=== PATIENT | female | born 1960 | race Asian ===

== ENCOUNTER → 2016-08-24 | Outpatient (CLI) | payer MEDICAID ==
[2015-01-06 10:21] VITALS: BP 158/92
[~2016-08-24] MED LIST: DRAMAMINE50 M2 PO; IRON325 M1 PO; ULTRAM 50MG TAB50 MG PO; ZESTRIL2.5 MG PO
== END ==
LOC: LAB 08-23 17:11
DX: I10 Essential (primary) hypertension (principal); M54.17 Radiculopathy, lumbosacral region; D50.0 Iron deficiency anemia secondary to blood loss (chronic); H81.20 Vestibular neuronitis, unspecified ear

== ENCOUNTER → 2016-12-06 | Outpatient (CLI) | payer MEDICAID ==
[2015-01-06 10:21] VITALS: BP 158/92
== END ==
LOC: LAB 07:51
DX: E03.9 Hypothyroidism, unspecified (principal)

== ENCOUNTER → 2017-02-21 | Outpatient (CLI) | payer MEDICAID ==
[2015-01-06 10:21] VITALS: BP 158/92
[2017-02-21 18:06] LABS: BUN/CREATININE RATIO 26.1 (6.0-26.0); CALCIUM 9.8 mg/dL (8.4-10.2); POTASSIUM 4.1 mmol/L (3.6-5.0)
== END ==
LOC: LAB 16:46
PROVIDERS: Family Medicine
DX: E03.9 Hypothyroidism, unspecified (principal); I10 Essential (primary) hypertension; E87.6 Hypokalemia

== ENCOUNTER → 2017-02-27 | Outpatient (CLI) | payer MEDICAID ==
[2015-01-06 10:21] VITALS: BP 158/92
== END ==
LOC: RAD 07:01
DX: M47.816 Spondylosis without myelopathy or radiculopathy, lumbar region (principal); M54.41 Lumbago with sciatica, right side

== ENCOUNTER → 2017-03-14 | Outpatient (CLI) | payer MEDICAID ==
[2015-01-06 10:21] VITALS: BP 158/92
== END ==
LOC: LAB 08:26
DX: R73.9 Hyperglycemia, unspecified (principal)

== ENCOUNTER 2017-05-03 08:30 | Outpatient (RCR) | payer MEDICAID ==
[2015-01-06 10:21] VITALS: BP 158/92
== END 2017-06-17 | disposition home or self-care (01) ==
LOC: PT
DX: M54.41 Lumbago with sciatica, right side (principal)

== ENCOUNTER → 2017-09-11 | Outpatient (CLI) | payer MEDICAID ==
[2015-01-06 10:21] VITALS: BP 158/92
[2017-09-11 15:16] LABS: HEMOGLOBIN 14.3 g/dL (12.5-16.0); MEAN PLATELET VOLUME 10.1 fl (7.4-10.4); RED BLOOD COUNT 4.83 M/mm3 (4.10-5.30); RED CELL DISTRIBUTION WIDTH 12.6 % (11.5-14.5); WHITE BLOOD COUNT 8.2 K/mm3 (4.8-10.8)
[2017-09-11 15:49] LABS: ALBUMIN 4.5 g/dL (3.5-5.0); CALCIUM 9.6 mg/dL (8.4-10.2); POTASSIUM 3.6 mmol/L (3.6-5.0); TOTAL BILIRUBIN 0.8 mg/dL (0.2-1.3); TOTAL PROTEIN 8.9 g/dL (6.3-8.2)
== END ==
LOC: LAB 14:57
PROVIDERS: Family Medicine
DX: G62.9 Polyneuropathy, unspecified (principal); L29.9 Pruritus, unspecified; M19.90 Unspecified osteoarthritis, unspecified site; E03.9 Hypothyroidism, unspecified; M51.9 Unspecified thoracic, thoracolumbar and lumbosacral intervertebral disc disorder; R73.9 Hyperglycemia, unspecified

== ENCOUNTER → 2018-03-24 | Day surgery (SDC) | payer MEDICAID ==
[2015-01-06 10:21] VITALS: BP 158/92
== END ==
LOC: MSO 07:01
DX: K64.5 Perianal venous thrombosis (principal); I10 Essential (primary) hypertension; E07.9 Disorder of thyroid, unspecified; E66.9 Obesity, unspecified; Z79.899 Other long term (current) drug therapy; R42 Dizziness and giddiness
CPT/HCPCS: 00902; J0690; J1100; J1885; J2405; J2704; J3010; J7120

== ENCOUNTER → 2018-07-25 | Outpatient (CLI) | payer MEDICAID ==
[2015-01-06 10:21] VITALS: BP 158/92
[2018-07-25 10:38] LABS: EOS # 0.1 (0.04-0.40); EOS % 2.3 % (1.0-5.0); HEMATOCRIT 41.9 % (37.0-47.0); HEMOGLOBIN 14.1 g/dL (12.5-16.0); LYMPH# 1.9 (1.50-4.00); MEAN CELL VOLUME 86 fl (78-100); MEAN CORPUSCULAR HEMOGLOBIN 29 pg (27-31); MEAN CORPUSCULAR HGB CONC 34 g/dL (33-37); MEAN PLATELET VOLUME 10.9 fl (7.4-10.4); MONO # 0.4 (0.20-0.80); NEU # 3.6 (1.40-6.50); PLATELET COUNT 228 K/mm3 (130-400); RED BLOOD COUNT 4.86 M/mm3 (4.10-5.30); RED CELL DISTRIBUTION WIDTH 12.2 % (11.5-14.5)
[2018-07-25 10:51] LABS: URINE APPEARANCE CLOUDY; URINE COLOR YELLOW; URINE PROTEIN(semi-quant) TRACE mg/dL (NEGATIVE)
[2018-07-25 10:52] LABS: ALBUMIN 4.5 g/dL (3.5-5.0); CALCIUM 9.3 mg/dL (8.4-10.2); POTASSIUM 3.5 mmol/L (3.6-5.0); TOTAL BILIRUBIN 0.7 mg/dL (0.2-1.3); TOTAL PROTEIN 7.9 g/dL (6.3-8.2); URINE BILIRUBIN NEGATIVE (NEGATIVE); URINE BLOOD NEGATIVE (NEGATIVE); URINE KETONE NEGATIVE (NEGATIVE); URINE LEUKOCYTE ESTERASE 1+ (NEGATIVE); URINE MUCUS PRESENT (NOT PRESENT); URINE NITRATE NEGATIVE (NEGATIVE); URINE UROBILINOGEN NORMAL (NORMAL); URINE WBC 31-50 /hpf (0-3)
== END ==
LOC: LAB 10:15
PROVIDERS: Family Medicine
DX: Z00.00 Encounter for general adult medical examination without abnormal findings (principal); Z12.12 Encounter for screening for malignant neoplasm of rectum; Z12.31 Encounter for screening mammogram for malignant neoplasm of breast; E03.9 Hypothyroidism, unspecified; I10 Essential (primary) hypertension; G47.9 Sleep disorder, unspecified; L20.9 Atopic dermatitis, unspecified; H81.10 Benign paroxysmal vertigo, unspecified ear; M19.90 Unspecified osteoarthritis, unspecified site; R10.32 Left lower quadrant pain

== ENCOUNTER → 2018-08-04 | Day surgery (SDC) | payer MEDICAID ==
[2015-01-06 10:21] VITALS: BP 158/92
== END ==
LOC: MSO 09:30
DX: Z12.11 Encounter for screening for malignant neoplasm of colon (principal); I10 Essential (primary) hypertension; K57.30 Diverticulosis of large intestine without perforation or abscess without bleeding; Z90.710 Acquired absence of both cervix and uterus; Z90.722 Acquired absence of ovaries, bilateral; Z90.79 Acquired absence of other genital organ(s)
CPT/HCPCS: 00812; J2704; J3010; J7120

== ENCOUNTER → 2018-08-08 | Outpatient (CLI) | payer MEDICAID ==
[2015-01-06 10:21] VITALS: BP 158/92
[2018-08-08 09:04] LABS: URINE APPEARANCE CLEAR; URINE BILIRUBIN NEGATIVE (NEGATIVE); URINE BLOOD NEGATIVE (NEGATIVE); URINE COLOR YELLOW; URINE GLUCOSE NEGATIVE (NEGATIVE); URINE KETONE NEGATIVE (NEGATIVE); URINE LEUKOCYTE ESTERASE NEGATIVE (NEGATIVE); URINE MUCUS PRESENT (NOT PRESENT); URINE NITRATE NEGATIVE (NEGATIVE); URINE PROTEIN(semi-quant) TRACE mg/dL (NEGATIVE); URINE UROBILINOGEN NORMAL (NORMAL)
== END ==
LOC: LAB 07:36
PROVIDERS: Family Medicine
DX: E11.65 Type 2 diabetes mellitus with hyperglycemia (principal)

== ENCOUNTER → 2018-08-13 | Outpatient (CLI) | payer MEDICAID ==
[2015-01-06 10:21] VITALS: BP 158/92
== END ==
LOC: MAMMO 08-05 09:15
DX: Z12.31 Encounter for screening mammogram for malignant neoplasm of breast (principal); Z13.820 Encounter for screening for osteoporosis; M85.80 Other specified disorders of bone density and structure, unspecified site

== ENCOUNTER 2019-02-03 13:00 | Outpatient (RCR) | payer MEDICAID ==
[2015-01-06 10:21] VITALS: BP 158/92
== END 2019-02-03 13:30 | disposition home or self-care (01) ==
LOC: PT 13:00
DX: M47.817 Spondylosis without myelopathy or radiculopathy, lumbosacral region (principal); M54.16 Radiculopathy, lumbar region; M53.3 Sacrococcygeal disorders, not elsewhere classified

== ENCOUNTER → 2019-03-02 | Outpatient (CLI) | payer MEDICAID ==
[2015-01-06 10:21] VITALS: BP 158/92
== END ==
LOC: LAB 08:15
DX: E03.9 Hypothyroidism, unspecified (principal)

== ENCOUNTER → 2019-05-12 | Outpatient (CLI) | payer MEDICAID ==
[2015-01-06 10:21] VITALS: BP 158/92
== END ==
LOC: LAB 10:39
DX: N30.90 Cystitis, unspecified without hematuria (principal)

== ENCOUNTER → 2019-12-07 | Outpatient (CLI) | payer MEDICAID ==
[2015-01-06 10:21] VITALS: BP 158/92
[2019-12-07 09:45] LABS: PH-URINE 5.5 (5.0 - 8.0); URINE APPEARANCE HAZY; URINE BILIRUBIN NEGATIVE (NEGATIVE); URINE BLOOD NEGATIVE (NEGATIVE); URINE COLOR YELLOW; URINE KETONE NEGATIVE (NEGATIVE); URINE LEUKOCYTE ESTERASE TRACE (NEGATIVE); URINE MUCUS PRESENT (NOT PRESENT); URINE NITRATE NEGATIVE (NEGATIVE); URINE PROTEIN(semi-quant) TRACE mg/dL (NEGATIVE); URINE UROBILINOGEN NORMAL (NORMAL)
== END ==
LOC: LAB 07:07
PROVIDERS: Family Medicine
DX: E78.1 Pure hyperglyceridemia (principal); I10 Essential (primary) hypertension; R30.0 Dysuria

== ENCOUNTER → 2020-03-07 | Outpatient (CLI) | payer MEDICAID ==
[2015-01-06 10:21] VITALS: BP 158/92
[2020-03-07 08:11] LABS: ALBUMIN 4.4 g/dL (3.5-5.0)
[2020-03-07 08:14] LABS: TOTAL PROTEIN 7.9 g/dL (6.4-8.3)
[2020-03-07 08:15] LABS: TOTAL BILIRUBIN 0.9 mg/dL (0.2-1.2)
[2020-03-07 08:19] LABS: DIRECT BILIRUBIN 0.4 mg/dL (0.0-0.5)
== END ==
LOC: LAB 07:33
PROVIDERS: Family Medicine
DX: E78.1 Pure hyperglyceridemia (principal)

== ENCOUNTER → 2020-10-03 | Outpatient (CLI) | payer MEDICAID | LOC: LAB 14:38 | DX: M79.10 Myalgia, unspecified site (principal); M19.90 Unspecified osteoarthritis, unspecified site; G25.81 Restless legs syndrome ==

== ENCOUNTER → 2021-01-17 | Outpatient (CLI) | payer MEDICAID | LOC: LAB 14:36 | DX: E03.9 Hypothyroidism, unspecified (principal) ==

== ENCOUNTER → 2021-04-21 | Outpatient (CLI) | payer MEDICAID ==
[2021-04-21 08:52] LABS: ALBUMIN 4.6 g/dL (3.4-4.8)
[2021-04-21 08:53] LABS: CALCIUM 9.8 mg/dL (8.3-10.5)
[2021-04-21 08:55] LABS: TOTAL PROTEIN 8.7 g/dL (6.2-8.1)
[2021-04-21 08:56] LABS: TOTAL BILIRUBIN 0.8 mg/dL (0.2-1.2)
[2021-04-21 09:00] LABS: DIRECT BILIRUBIN 0.3 mg/dL (0.0-0.5)
== END ==
LOC: LAB 07:47
PROVIDERS: Family Medicine
DX: E78.1 Pure hyperglyceridemia (principal)

== ENCOUNTER → 2021-04-29 | Outpatient (CLI) | payer MEDICAID | LOC: LAB 08:37 | DX: U07.1 COVID-19 (principal) ==

== ENCOUNTER → 2021-12-27 | Outpatient (CLI) | payer MEDICAID | LOC: LAB 07:00 | DX: E11.9 Type 2 diabetes mellitus without complications (principal) ==

== ENCOUNTER → 2022-02-01 | Outpatient (CLI) | payer MEDICAID ==
[2022-02-01 09:49] LABS: ALBUMIN 4.5 g/dL (3.4-4.8)
[2022-02-01 09:51] LABS: CALCIUM 10.2 mg/dL (8.3-10.5)
[2022-02-01 09:52] LABS: TOTAL PROTEIN 8.2 g/dL (6.2-8.1)
== END ==
LOC: LAB 09:07
PROVIDERS: Family Medicine
DX: E11.9 Type 2 diabetes mellitus without complications (principal); E03.9 Hypothyroidism, unspecified; R00.2 Palpitations

== ENCOUNTER → 2023-01-08 | Outpatient (CLI) | payer MEDICAID | LOC: LAB 14:38 | DX: R30.0 Dysuria (principal) ==

== ENCOUNTER → 2023-01-23 | Outpatient (CLI) | payer MEDICAID | LOC: LAB 08:15 | DX: E03.9 Hypothyroidism, unspecified (principal); E78.1 Pure hyperglyceridemia ==

== ENCOUNTER → 2023-05-06 | Outpatient (CLI) | payer MEDICAID ==
[2023-05-06 09:31] LABS: ALBUMIN 4.5 g/dL (3.4-4.8)
[2023-05-06 09:32] LABS: CALCIUM 9.8 mg/dL (8.3-10.5)
[2023-05-06 09:33] LABS: TOTAL PROTEIN 8.2 g/dL (6.2-8.1)
[2023-05-06 09:35] LABS: TOTAL BILIRUBIN 0.7 mg/dL (0.2-1.2)
== END ==
LOC: LAB 09:08
PROVIDERS: Family Medicine
DX: N39.0 Urinary tract infection, site not specified (principal); I10 Essential (primary) hypertension; E11.9 Type 2 diabetes mellitus without complications; L20.9 Atopic dermatitis, unspecified

== ENCOUNTER → 2023-05-30 | Outpatient (CLI) | payer MEDICAID | LOC: LAB 15:02 | DX: N30.01 Acute cystitis with hematuria (principal) ==

== ENCOUNTER → 2023-07-19 | Outpatient (CLI) | payer MEDICAID ==
[2023-07-19 12:33] LABS: URINE APPEARANCE CLOUDY (CLEAR); URINE BILIRUBIN NEGATIVE (NEGATIVE); URINE BLOOD TRACE-LYSED (NEGATIVE); URINE COLOR YELLOW (YELLOW); URINE GLUCOSE 2+ (NEGATIVE); URINE KETONE NEGATIVE (NEGATIVE); URINE LEUKOCYTE ESTERASE 1+ (NEGATIVE); URINE NITRATE NEGATIVE (NEGATIVE); URINE PROTEIN(semi-quant) NEGATIVE (NEGATIVE); URINE WBC >50 /hpf (0-3)
[2023-07-20 13:31] LABS: AFFIRM VAGINITIS PANEL RESULTS AMS
== END ==
LOC: LAB 11:03
PROVIDERS: Nurse Practitioner
DX: N30.01 Acute cystitis with hematuria (principal)

== ENCOUNTER → 2023-12-18 | Outpatient (CLI) | payer MEDICAID ==
[2023-12-18 14:30] LABS: CALCIUM 10.1 mg/dL (8.3-10.5)
== END ==
LOC: LAB 13:58
PROVIDERS: Family Medicine
DX: E03.9 Hypothyroidism, unspecified (principal); E11.9 Type 2 diabetes mellitus without complications

== ENCOUNTER → 2024-03-19 | Outpatient (CLI) | payer MEDICAID | LOC: LAB 08:58 → RAD 08:58 | DX: Z12.31 Encounter for screening mammogram for malignant neoplasm of breast (principal); E11.9 Type 2 diabetes mellitus without complications ==

== ENCOUNTER → 2024-04-10 | Outpatient (CLI) | payer MEDICAID ==
[2024-04-10 08:15] LABS: BASO # 0.02 K/mm3 (0.02-0.10); EOS # 0.22 K/mm3 (0.04-0.40); EOS % 3.3 % (1.0-5.0); HEMATOCRIT 38.4 % (37.0-47.0); HEMOGLOBIN 13.1 g/dL (12.5-16.0); LYMPH# 1.43 K/mm3 (1.50-4.00); MEAN CELL VOLUME 85 fl (78-100); MEAN CORPUSCULAR HEMOGLOBIN 29 pg (27-31); MEAN CORPUSCULAR HGB CONC 34 g/dL (33-37); MEAN PLATELET VOLUME 10.4 fl (7.4-10.4); MONO # 0.44 K/mm3 (0.20-0.80); NEU # 4.59 K/mm3 (1.40-6.50); PLATELET COUNT 294 K/mm3 (130-400); RED BLOOD COUNT 4.54 M/mm3 (4.10-5.30); RED CELL DISTRIBUTION WIDTH 12.5 % (11.5-14.5); WHITE BLOOD COUNT 6.7 K/mm3 (4.8-10.8)
[2024-04-10 08:21] LABS: ALBUMIN 4.7 g/dL (3.4-4.8)
[2024-04-10 08:22] LABS: CALCIUM 10.5 mg/dL (8.3-10.5)
[2024-04-10 08:23] LABS: TOTAL PROTEIN 8.4 g/dL (6.2-8.1)
[2024-04-10 08:25] LABS: TOTAL BILIRUBIN 1.2 mg/dL (0.2-1.2)
[2024-04-10 09:19] LABS: URINE APPEARANCE CLOUDY (CLEAR); URINE BILIRUBIN NEGATIVE (NEGATIVE); URINE COLOR YELLOW (YELLOW); URINE GLUCOSE NEGATIVE (NEGATIVE); URINE KETONE TRACE (NEGATIVE); URINE PROTEIN(semi-quant) 1+ (NEGATIVE)
[2024-04-10 09:20] LABS: URINE BLOOD 1+ (NEGATIVE); URINE LEUKOCYTE ESTERASE 3+ (NEGATIVE); URINE NITRATE POSITIVE (NEGATIVE); URINE WBC >50 /hpf (0-3)
== END ==
LOC: LAB 07:49
PROVIDERS: Nurse Practitioner Family
DX: R42 Dizziness and giddiness (principal); R11.0 Nausea

== ENCOUNTER → 2024-05-07 | Outpatient (CLI) | payer MEDICAID ==
[2024-05-07 10:08] LABS: URINE APPEARANCE CLEAR (CLEAR); URINE BILIRUBIN NEGATIVE (NEGATIVE); URINE COLOR LIGHT YELLOW (YELLOW); URINE GLUCOSE 3+ (NEGATIVE); URINE KETONE NEGATIVE (NEGATIVE); URINE PROTEIN(semi-quant) NEGATIVE (NEGATIVE)
[2024-05-07 10:09] LABS: URINE BLOOD NEGATIVE (NEGATIVE); URINE LEUKOCYTE ESTERASE NEGATIVE (NEGATIVE); URINE NITRATE NEGATIVE (NEGATIVE)
== END ==
LOC: LAB 08:35
PROVIDERS: Family Medicine
DX: R30.0 Dysuria (principal); E11.9 Type 2 diabetes mellitus without complications

== ENCOUNTER → 2024-07-01 | Outpatient (CLI) | payer MEDICAID | LOC: RAD 13:54 | DX: M51.369 Other intervertebral disc degeneration, lumbar region without mention of lumbar back pain or lower extremity pain (principal) ==